=== PATIENT | female | born 1990 | race Caucasian/White ===

== ENCOUNTER 2018-10-12 02:35 | Inpatient (IN) | payer OTHER ==
[~2018-10-12] VITALS: Ht 162.6 cm; Wt 68.6 kg
[2018-10-12] VITALS (39 sets, daily range): BP systolic 97–131; BP diastolic 54–80; PULSE 54–110; TEMP 97.3–98.2
[~2018-10-12 02:35] MED LIST: MOTRIN 600600 MG/TAB PO; PERCOCET 325 MG1 TA2 PO; PRENATAL FORMU1 EAC3 PO; SENOKOT S 50 MG1 TAB PO
--- NOTE | 2018-10-12 02:45 | NUR ---
PT TO UNIT VIA WHEELCHAIR WITH COMPLAINTS OF CONTRACTIONS THAT BEGAN AT 2200. PT ORIENTED TO ROOM, CHANGED INTO GOWN. SPOUSE AT BEDSIDE. EFM APPLIED, VS OBTAINED, SVE PERFORMED.
[2018-10-12 04:07] LABS: BASO % 0.3 % (0.0-2.0); EOS # 0.1 (0.0-0.7); EOS % 0.4 % (0-4.0); GRAN # 10.3 (1.4-6.5); GRAN % 75.9 % (42.2-75.2); HEMATOCRIT 38.1 % (37.0-47.0); HEMOGLOBIN 13.5 g/dl (12.5-16.0); LYMPH # 2.4 (1.2-3.4); LYMPH % 17.9 % (20.0-51.0); MEAN CELL VOLUME 90 fl (80.0-100.0); MEAN CORPUSCULAR HEMOGLOBIN 32 pg (27.0-31.0); MEAN CORPUSCULAR HGB CONC 35 g/dl (33.0-37.0); MONO # 0.7 (0.1-0.6); MONO % 5.1 % (1.7-9.3); PLATELET COUNT 209 K/mm3 (130-400); RED BLOOD COUNT 4.22 M/mm3 (4.10-5.30); REDCELL DISTRIBUTION WIDTH-CV 11.9 % (11.5-14.5)
--- NOTE | 2018-10-12 04:35 | NUR ---
0417- ESPERANZA AVILA IN ROOM FOR EPIDURAL PLACEMENT. PT SITTING UP AT SIDE OF BED. BP TO TAKE EVERY 5 MINUTES, PULSE OX IN PLACE. TIME OUT PERFORMED. 0430- TEST DOSE GIVEN BY Leona BURGOS CRNA, PT TOLERATED WELL. 0435- PT REPOSITIONED IN SEMIFOWLERS.
--- NOTE | 2018-10-12 06:45 | NUR ---
Baseline noted in the 100s. Pt repositioned PBLL. SVE /-1. 0702-Decelerations noted in the 70-90s with baseline in the 100s. Moderate variability with accelerations. Pt repositioned. HFWL. LR bolus infusing. O2 applied via simple mask at 10L. SVE /-1. Dr. العراقي notified. See physician notification. 0718-FHR noted in the 90-100s. SVE unchanged. Pt repositioned LL.
--- NOTE | 2018-10-12 10:35 | NUR ---
Pt states increase of pressure. SVE per this RN AL/0. Pt coached on pushing. Practice push performed. Moves vertex well. Dr. العراقي notified. Updated on low FHR baseline with late decels. Requested for delivery. Orders to continue pushing with pt. 1049-Dr. العراقي at bedside. Begins pushing with pt. 1102- of male infant attended by Dr. العراقي. Cord clamped x 2. Infant cut from umbilicus. Care of to Carlos Camarena RN. Apgars . 1104- of placenta. Pitocin bolus infusing. Fundus firm at umbilicus. Bleeding WNL. Second degree laceration performed by provider. Pericare performed. Ice pack applied. Pt updated on POC. Safety reviewed. No questions or concerns at this time. Bed locked in low position. Call light within reach.
[2018-10-13 01:21] VITALS: BP 118/70; PULSE 63; TEMP 97.9
[2018-10-13] MEDS ORDERED: MOTRIN 800800 MG/TAB PO (08:44)
--- NOTE | 2018-10-13 09:39 | NUR ---
Initial visit; Parents thanked [employer] for looking in on them and offering congratulations and God's blessings for the of their son. [employer] thanked them for choosing our hospital.
== END 2018-10-13 12:30 | disposition home or self-care (01) | DRG 807 ==
LOC: LDRO 02:35 → LDR 03:51 → OB 13:05
PROVIDERS: ADMIT Obstetrics & Gynecology
PROC: 10E0XZZ Delivery of Products of Conception, External Approach (ICD-10-PCS; principal; 2018-10-12)
PROC: 0KQM0ZZ Repair Perineum Muscle, Open Approach (ICD-10-PCS; 2018-10-12)
PROC: 0UQMXZZ Repair Vulva, External Approach (ICD-10-PCS; 2018-10-12)
DX: O34.211 Maternal care for low transverse scar from previous cesarean delivery (principal); Z37.0 Single live birth; N85.8 Other specified noninflammatory disorders of uterus; Z3A.39 39 weeks gestation of pregnancy; O70.1 Second degree perineal laceration during delivery; O70.0 First degree perineal laceration during delivery
CPT/HCPCS: J2590; J7120